=== PATIENT | female | born 1990 | race Caucasian/White ===

== ENCOUNTER 2024-01-11 21:11 | Emergency (ER) | payer BC ==
[~2024-01-11] VITALS: Ht 160 cm; Wt 98.9 kg
[2024-01-11 21:30] VITALS: BP 110/74; PULSE 74; RESP 17; TEMP 98; O2SAT 100
[2024-01-11] MEDS: LIDOCAINE MPF 1% 10 MG/ML VIAL INJ ONE (21:52)
[2024-01-11 22:00] VITALS: BP 110/74; PULSE 74; RESP 17; TEMP 98; O2SAT 100
== END 2024-01-11 22:00 | disposition home or self-care (01) ==
LOC: MED 21:11
DX: S61.213A Laceration without foreign body of left middle finger without damage to nail, initial encounter (principal); Z79.899 Other long term (current) drug therapy; W26.0XXA Contact with knife, initial encounter; Y93.89 Activity, other specified; Y92.89 Other specified places as the place of occurrence of the external cause; Y99.8 Other external cause status
CPT/HCPCS: 12002; 99282; J2001